=== PATIENT | female | born 1955 | race Caucasian/White ===

== ENCOUNTER → 2017-03-04 | Outpatient (CLI) | payer BC ==
[~2017-03-04] MED LIST: PAXIL20 MG PO; RISPERDAL1 MG PO; SYNTHROID0.075 MG PO
[2017-03-04 10:23] LABS: BASO # 0.1 10*3/uL (0.0-0.1); BASO % 0.7 % (0.0-1.0); EOS # 0.2 10*3/uL (0.0-0.4); EOS % 2.6 % (1.0-4.0); HEMATOCRIT 40.3 % (37.0-47.0); HEMOGLOBIN 13.9 g/dl (12.0-16.0); LYMPH # 2.7 10*3/uL (1.3-4.4); LYMPH % 29.4 % (27.0-41.0); MEAN CELL VOLUME 92.4 fl (81.0-99.0); MEAN CORPUSCULAR HGB 31.9 pg (27.0-31.0); MEAN CORPUSCULAR HGB CONC 34.5 g/dl (33.0-37.0); MEAN PLATELET VOLUME 9.3 fl (9.6-12.3); NEUT # 5.1 10*3/uL (2.3-7.9); PLATELET COUNT AUTOMATED 283 10*3/uL (130-400); RED BLOOD COUNT 4.36 10*6/uL (4.10-5.10); RED CELL DISTRI WIDTH 12.2 % (0-14.5)
[2017-03-04 10:40] LABS: ALBUMIN 3.9 gm/dl (3.1-4.5); ALKALINE PHOSPHATASE 143 U/L (45-117); BILIRUBIN, TOTAL 0.3 mg/dl (0.2-1.0); BUN 9 mg/dl (7-24); CARBON DIOXIDE 27 mmol/L (21-32); CHLORIDE 105 mmol/L (98-107); EST GLOM FILT AFRICAN AMERICAN > 60 ml/min; GLUCOSE 85 mg/dL (65-99); POTASSIUM 3.8 mmol/L (3.5-5.1); SGOT/AST 31 IU/L (3-35); SGPT/ALT 26 U/L (12-78); SODIUM 141 mmol/L (136-145); TOTAL PROTEIN 7.3 gm/dL (6.4-8.2)
== END | disposition home or self-care (01) ==
LOC: LAB 09:47
PROVIDERS: Internal Medicine
DX: R05 Cough (principal); I10 Essential (primary) hypertension

== ENCOUNTER → 2018-04-01 | Outpatient (CLI) | payer BC | END | disposition home or self-care (01) | LOC: MAMMO 06:53 | DX: Z12.31 Encounter for screening mammogram for malignant neoplasm of breast (principal) ==

== ENCOUNTER → 2018-04-15 | Outpatient (CLI) | payer BC | END | disposition home or self-care (01) | LOC: MAMMO 04-07 14:30 | DX: N64.9 Disorder of breast, unspecified (principal) ==

== ENCOUNTER → 2020-06-08 | Outpatient (CLI) | payer BC | END | disposition home or self-care (01) | LOC: MAMMO 07:03 | DX: Z12.31 Encounter for screening mammogram for malignant neoplasm of breast (principal) ==

== ENCOUNTER → 2021-06-13 | Outpatient (CLI) | payer BC | END | disposition home or self-care (01) | LOC: RAD 07:26 → MAMMO 08:30 | PROVIDERS: ATTEND Physician Assistant | DX: Z12.31 Encounter for screening mammogram for malignant neoplasm of breast (principal); N64.89 Other specified disorders of breast; Z78.0 Asymptomatic menopausal state ==

== ENCOUNTER → 2023-07-02 | Outpatient (CLI) | payer BC | END | disposition home or self-care (01) | LOC: MAMMO 07:17 | PROVIDERS: ATTEND Physician Assistant | DX: Z12.31 Encounter for screening mammogram for malignant neoplasm of breast (principal) ==

== ENCOUNTER → 2024-07-14 | Outpatient (CLI) | payer BC | END | disposition home or self-care (01) | LOC: MAMMO 08:44 | PROVIDERS: ATTEND Physician Assistant | DX: Z12.31 Encounter for screening mammogram for malignant neoplasm of breast (principal); N64.89 Other specified disorders of breast ==

== ENCOUNTER → 2024-08-04 | Outpatient (CLI) | payer BC | END | disposition home or self-care (01) | LOC: MAMMO 12:31 | PROVIDERS: ATTEND Physician Assistant | DX: R92.1 Mammographic calcification found on diagnostic imaging of breast (principal); R92.8 Other abnormal and inconclusive findings on diagnostic imaging of breast ==